=== PATIENT | male | born 2005 | race Caucasian/White ===

== ENCOUNTER → 2024-09-24 11:57 | Outpatient (REF) | payer OTHER, SELFPAY | LOC: HWRAD 11:57 | PROVIDERS: ATTENDING PHYSICIAN Otolaryngology | DX: J32.0 Chronic maxillary sinusitis (principal) | CPT/HCPCS: 70486 ==

== ENCOUNTER → 2024-11-20 15:21 | Outpatient (REF) | payer OTHER, SELFPAY | LOC: CLAB 15:21 | PROVIDERS: ATTENDING PHYSICIAN Otolaryngology | DX: J32.0 Chronic maxillary sinusitis (principal); J34.2 Deviated nasal septum; J34.3 Hypertrophy of nasal turbinates | CPT/HCPCS: 88311; 87070; 87075; 87077; 87205 ==

== ENCOUNTER → 2025-03-28 08:02 | Outpatient (REF) | payer OTHER, SELFPAY | LOC: HWRAD 08:02 | PROVIDERS: ATTENDING PHYSICIAN Otolaryngology; FAMILY PHYSICIAN Student in an Organized Health Care Education/Training Program | DX: J32.0 Chronic maxillary sinusitis (principal) | CPT/HCPCS: 70486 ==